=== PATIENT | female | born 1970 | race Asian ===

== ENCOUNTER 2021-01-25 16:33 | Emergency (ER) | payer OTHER ==
[2021-01-25 16:56] VITALS: BP 147/86; PULSE 73; TEMP 98.1; BMI 21.2
[2021-01-25 18:00] LABS: BASO % 0.9 % (0-2.0); EOS % 0.8 % (0-4.5); HEMATOCRIT 42.8 % (32.4-45.2); HEMOGLOBIN 14.9 GM/dL (10.7-15.3); LYMPH % 42.9 % (8-40); MCH 34.6 pg (25.7-33.7); MCHC 34.8 g/dl (32.0-36.0); MEAN CELL VOLUME 99.2 fl (80-96); MONO % 7.5 % (3.8-10.2); NEUT % 47.9 % (42.8-82.8); PLATELET COUNT 296 10^3/uL (134-434); RBC 4.31 M/mm3 (3.60-5.2); WHITE BLOOD COUNT 3.8 K/mm3 (4.0-10.0)
[2021-01-25 18:24] LABS: CHLORIDE 102 mmol/L (98-107); SODIUM 140 mmol/L (136-145)
[2021-01-25 18:25] LABS: CALCIUM 10.1 mg/dL (8.5-10.1)
[2021-01-25 18:26] LABS: ALBUMIN 4.3 g/dl (3.4-5.0); ANION GAP 11 MMOL/L (8-16); BLOOD UREA NITROGEN 12.3 mg/dL (7-18); CO2 27 mmol/L (21-32); GLUCOSE,RANDOM 75 mg/dL (74-106)
[2021-01-25 18:29] LABS: CREATININE 0.7 mg/dL (0.55-1.3); SGOT/AST 26 U/L (15-37); SGPT/ALT 28 U/L (13-61)
[2021-01-25 18:31] LABS: BILIRUBIN,TOTAL 0.3 mg/dL (0.2-1); TOT PROT 7.8 g/dl (6.4-8.2)
[2021-01-25 18:32] LABS: ALK PHOS 75 U/L (45-117)
== END 2021-01-25 19:55 | disposition home or self-care (01) ==
LOC: JER 16:33
DX: R07.9 Chest pain, unspecified (principal)
CPT/HCPCS: 36415; 71046-TC-FY; 80053; 84484; 85025; 93005; 93010; 99285-25